=== PATIENT | female | born 1950 | race Caucasian/White ===

== ENCOUNTER → 2024-02-03 13:10 | Outpatient (REF) | payer MEDICARE, OTHER, SELFPAY | LOC: PAVMRI 13:10 | PROVIDERS: ATTENDING PHYSICIAN Pain Medicine Interventional Pain Medicine; FAMILY PHYSICIAN Family Medicine | DX: M54.16 Radiculopathy, lumbar region (principal) | CPT/HCPCS: 72148 ==

== ENCOUNTER → 2024-05-17 14:22 | Outpatient (REF) | payer MEDICARE, OTHER, SELFPAY | LOC: HWRAD 14:22 | PROVIDERS: ATTENDING PHYSICIAN Family Medicine | DX: R06.02 Shortness of breath (principal) | CPT/HCPCS: 71250 ==

== ENCOUNTER 2025-03-14 05:28 | Emergency (ER) | payer MEDICARE, OTHER, SELFPAY ==
[2025-03-14 05:29] VITALS: BP 164/102
--- NOTE | 2025-03-14 05:41 | ED.GENMED ---
History of Present Illness
<Holly Rondon PA-C - Last Filed: 03/14/25 22:57>
General
Chief Complaint: Urinary Symptoms
Source: patient
Exam Limitations: none
Time Seen by Provider: 03/14/25 05:41
Nursing documentation reviewed up to this point in time: agreed with
History of Present Illness
History of Present Illness:
The patient is a 74-year-old female with pmh of htn, utis, CVA, hlp, presenting to the ER today with urinary retention and pelvic pain starting the previous night. She describes a severe urgency to urinate with minimal output, saying, 'The pressure
is mind-blowing,' and despite repeated attempts, passing very little urine each time. She estimates attempting to void 15-20 times overnight. She does have a history of recurrent urinary tract infections (UTIs) but states that she has not ever had
retention with UTIs in the past. The retention coincides with pelvic and rear discomfort, with uncertainty between needing to defecate or pain. She last had a bowel movement yesterday with the aid of a laxative and occasionally takes laxatives for
her Irritable Bowel Syndrome (IBS) which doesn�t seem effective. She follows a diet including a large salad daily but reports this is also ineffective for her bowel routine. Additionally, she reports chronic low back pain due to pre-existing disc
issues. She denies fever, chills, numbness in her legs, or blood in her urine, genital paresthesias, new medications, difficulty ambulating.
Past History
<Holly Rondon PA-C - Last Filed: 03/14/25 22:57>
Past History
ED Past Medical History: CVA and Hypercholesterolemia
ED Past Surgical History: Gynecological (Hysterectomy) and Orthopedic
Social History
Tobacco: Non-smoker
Alcohol: None
Drug: None
Review of Systems
<Holly Rondon PA-C - Last Filed: 03/14/25 22:57>
Review of Systems
All Other Systems: ROS reviewed and negative except as documented in HPI and ROS
Phy Exam
<MYRIAM Hollis Last Filed: 03/14/25 22:57>
Physical Exam
Physical Exam:
General: Patient is well appearing and in no acute distress; non-toxic
Skin: Warm and dry, no rashes or lesions
Head: Normocephalic, atraumatic
Eyes: Sclera non-icteric. EOMs intact.
Cardiac: Regular rate
Peripheral Vascular:
Pulm: Normal respiratory effort, no wheezes, rales, or rhonchi
Abdomen: N pelvic tenderness to palpation
Neuro: CN II-XII intact, no focal neurologic deficits.
Psychiatric: Appropriate mood and affect.
Course
<MYRIAM Hollis Last Filed: 03/14/25 22:57>
Orders/Labs/Results
Orders:
Orders
03/14/25 05:47
Urinalysis Reflex To Culture Urgent
Date Specimen was Collected: 03/14/25
Time Specimen was Collected: 05:42
Urine Microscopic Reflex Cult Urgent
Urine Culture Urgent
CHERRY Source: U
Specimen Description:
Date Specimen was Collected: 03/14/25
Time Specimen was Collected: 05:42
03/14/25 05:50
Bladder Scan- Treatment ONCE
03/14/25 05:51
CT Abd/pelvis W Iv Cont Urgent
Comment:
Reason For Exam: new onset urinary retention, abdominal pain
03/14/25 06:05
Complete Blood Count/With Diff Urgent
03/14/25 06:06
Comprehensive Metabolic Panel Urgent
Lipase Urgent
03/14/25 07:08
CefTRIAXone [Rocephin] 2,000 mg IV NOW STA
03/14/25 07:30
Sterile Water [Sterile Water For Injection] 20 ml .ROUTE .STK-MED
03/14/25 07:47
Ketorolac [Toradol] 15 mg IV NOW STA
Phenazopyridine HCl [Pyridium] 200 mg PO NOW STA
03/14/25 09:10
Moody Placement- Treatment ONCE
Reason for insertion: Acute Retention
Abnormal Lab Results
03/14/25 03/14/25 03/14/25
05:47 06:05 06:06
RBC 3.97 L 10^6/uL
(4.20-5.40)
Hct 36.0 L %
(37.0-47.0)
MPV 11.0 H fL
(7.4-10.4)
Absolute Lymphs (auto) 1.0 L 10^3/uL
(1.2-3.4)
Lymphocytes % 18.2 L %
(20.5-51.1)
Monocytes % 9.4 H %
(1.7-9.3)
Chloride 110 H mmol/L
(98-107)
BUN 24 H mg/dl
(7-17)
Glucose 117 H mg/dl
(70-99)
Ur Occult Blood Reflex 4+ A
(Negative)
Leukocyte Esterase Rfl 3+ A
(Negative)
Urine RBC 40-50 A /HPF
(0-2)
Urine WBC (Reflex) >100 A /HPF
(0-5)
Urine Bacteria (Reflex) Moderate A
(Negative)
Urine Albumin (Reflex) 3+ A
(Neg - Trace)
03/14/25 06:05
03/14/25 06:06
Vital Signs
Initial and Last Documented VS:
Initial Vital Signs
Temp Pulse Resp BP Pulse Ox
97.8 F 108 20 164/102 95
03/14/25 05:29 03/14/25 05:29 03/14/25 05:29 03/14/25 05:29 03/14/25 05:29
Last Documented Vital Signs
Temp Pulse Resp BP Pulse Ox
97.8 F 81 16 140/89 99
03/14/25 05:29 03/14/25 11:21 03/14/25 11:21 03/14/25 11:21 03/14/25 11:21
<Zev Landon Jr., LAURY-Víctor - Last Filed: 03/14/25 10:56>
Orders/Labs/Results
Orders:
Orders
03/14/25 05:47
Urinalysis Reflex To Culture Urgent
Date Specimen was Collected: 03/14/25
Time Specimen was Collected: 05:42
Urine Microscopic Reflex Cult Urgent
Urine Culture Urgent
CHERRY Source: U
Specimen Description:
Date Specimen was Collected: 03/14/25
Time Specimen was Collected: 05:42
03/14/25 05:50
Bladder Scan- Treatment ONCE
03/14/25 05:51
CT Abd/pelvis W Iv Cont Urgent
Comment:
Reason For Exam: new onset urinary retention, abdominal pain
03/14/25 06:05
Complete Blood Count/With Diff Urgent
03/14/25 06:06
Comprehensive Metabolic Panel Urgent
Lipase Urgent
03/14/25 07:08
CefTRIAXone [Rocephin] 2,000 mg IV NOW STA
03/14/25 07:30
Sterile Water [Sterile Water For Injection] 20 ml .ROUTE .STK-MED
03/14/25 07:47
Ketorolac [Toradol] 15 mg IV NOW STA
Phenazopyridine HCl [Pyridium] 200 mg PO NOW STA
03/14/25 09:10
Moody Placement- Treatment ONCE
Reason for insertion: Acute Retention
Abnormal Lab Results
03/14/25 03/14/2503/14/25
05:47 06:05 06:06
RBC 3.97 L 10^6/uL
(4.20-5.40)
Hct 36.0 L %
(37.0-47.0)
MPV 11.0 H fL
(7.4-10.4)
Absolute Lymphs (auto) 1.0 L 10^3/uL
(1.2-3.4)
Lymphocytes % 18.2 L %
(20.5-51.1)
Monocytes % 9.4 H %
(1.7-9.3)
Chloride 110 H mmol/L
(98-107)
BUN 24 H mg/dl
(7-17)
Glucose 117 H mg/dl
(70-99)
Ur Occult Blood Reflex 4+ A
(Negative)
Leukocyte Esterase Rfl 3+ A
(Negative)
Urine RBC 40-50 A /HPF
(0-2)
Urine WBC (Reflex) >100 A /HPF
(0-5)
Urine Bacteria (Reflex) Moderate A
(Negative)
Urine Albumin (Reflex) 3+ A
(Neg - Trace)
03/14/25 06:05
03/14/25 06:06
Vital Signs
Initial and Last Documented VS:
Initial Vital Signs
Temp Pulse Resp BP Pulse Ox
97.8 F 108 20 164/102 95
03/14/25 05:29 03/14/25 05:29 03/14/25 05:29 03/14/25 05:29 03/14/25 05:29
Last Documented Vital Signs
Temp Pulse Resp BP Pulse Ox
97.8 F 81 16 140/89 99
03/14/25 05:29 03/14/25 11:21 03/14/25 11:21 03/14/25 11:21 03/14/25 11:21
<Holly Rondon PA-C - Last Filed: 03/14/25 22:57>
MDM/Problems Addressed
Differential Diagnosis Includes:
The Differential Diagnosis includes, in no particular order and is not limited to:
1. Urinary Tract Infection
2. Urolithiasis (urinary stones)
3. Bladder outlet obstruction
4. Ureteral obstruction
5. Pelvic floor dysfunction
6. Neurogenic bladder
7. Incomplete bladder emptying due to constipation
8. Disc herniation causing secondary urinary symptoms
9. Acute kidney injury
10. Irritable Bowel Syndrome exacerbation affecting urinary function
MDM/Problems Addressed:
74 y/o female presents to the ER with new onset urinary retention. She notes pelvic pain and burning with urination. She has never had retention before. She has associated chronic low back pain. Patient was retaining around 380 and she was straight
cathed. Her urinalysis is concerning for infection. CBC unremarkable. Case signed out to Noe Landon PA-C pending CT scan and rest of blood work
<Zev Landon Jr., PA-C - Last Filed: 03/14/25 10:56>
*Critical Care Note
Total Time (30-74mins, 75-104mins- exclusive of procedures): Not Applicable
<Zev Landon Jr., PA-C - Last Filed: 03/14/25 10:56>
Update Note
Update Note:
ES////CT results were discussed with the patient. Still having difficulty with urination still retaining at this point Moody catheter will be placed. Otherwise no signs of complication patient generally well-appearing plan to follow plan as listed
below.
- Initiate ceftriaxone, followed by a prescription for oral antibiotics twice daily for one week, pending culture results to ensure appropriate coverage.
- Place a Moody catheter to manage urinary retention, with plans for removal and further evaluation by a urologist in one to two weeks.
- Recommend and arrange follow-up with a urologist to evaluate the cause of recurrent UTIs and discuss possible anatomical causes, including urinary reflux.
- Plan to adjust antibiotic therapy if urine culture results indicate resistance to the prescribed regimen.
ED Attending Note
<Holly Rondon PA-C - Last Filed: 03/14/25 22:57>
-
Portions of this chart may have been created with voice recognition software.� Occasional wrong word or��sound alike� substitutions may have occurred due to the inherent limitations of voice recognition software.
Discharge Plan
Departure
Patient Disposition: Home (Routine Discharge)
Date of Disposition: 03/14/25
Time of Disposition: 09:10
Patient with high blood pressure during this ER visit?: No
Condition: Good
Covid-19: Not Applicable
Discharge Problem:
Acute UTI, Retention of urine
Instructions: Urinary Tract Infection, Adult (DC), How to care for a urinary catheter
Prescriptions:
New
cefpodoxime 200 mg tablet
200 mg PO BID 7 Days Qty: 14 0RF
No Action
pantoprazole 20 MG tablet,delayed release (DR/EC)
20 mg PO DAILY
Patient Comments:
not sure of dose
zolpidem 5 MG tablet
5 mg PO HS
atorvastatin 40 mg Tablet
40 mg PO QPM
citalopram [Celexa] 40 mg Tablet
20 mg PO DAILY
cholecalciferol (vitamin D3) [Vitamin D3] 125 mcg (5,000 unit) Tablet
125 mcg PO DAILY
valsartan-hydrochlorothiazide 80-12.5 mg Tablet
0.5 tab PO DAILY Qty: 0 0RF
Rx Instructions:
HOLD SYSTOLIC BLOOD PRESSURE<130 IF TAKING OXY
Referrals:
Jaspreet Carbone MD [Active, Urology]
Jeremy Tyson MD [Family Provider, Family Practice]
Activity Restrictions/Additional Instructions:
You came to the emergency department today with concerns of urinary symptoms. You are found to have a urinary tract infection. Please take the prescribed antibiotic and follow-up closely with urology for further assessment and management.
Interventions
Interventions:
*Risk Screen - Suicide Last Done: 03/14/25 05:29
*General Assessment Last Done: 03/14/25 06:15
*Neglect/Abuse Screening Last Done: 03/14/25 05:29
*ED- Fall Risk Assessment Last Done: 03/14/25 06:15
*ED COVID-19 Vaccine History Last Done: 03/14/25 06:15
*Nursing Disposition Last Done: 03/14/25 11:21
MH-Mneobs-Ggctyyochh Assessment Last Done: 03/14/25 06:56
ED-Female Genitourinary Assessment Last Done: 03/14/25 07:01
Discharge Date and Time
Discharge Date/Time: 03/14/25 11:22
Print Language: FRISIAN
[2025-03-14 05:56] LABS: Urine Albumin 3+ (Neg - Trace); Urine Bilirubin Negative (Negative); Urine Character Cloudy (Clear); Urine Glucose Negative (Negative); Urine Ketone Negative (Negative); Urine Leukocyte 3+ (Negative); Urine Nitrite Negative (Negative); Urine Occult Blood 4+ (Negative); Urine Urobilinogen Negative (Neg - 1+)
[2025-03-14 06:01] LABS: Urine Color Straw
[2025-03-14 06:15] VITALS: BMI 26.6
[2025-03-14 06:18] LABS: Urine Bacteria Moderate (Negative); Urine Red Blood Cell 40-50 /HPF (0-2); Urine White Cell >100 /HPF (0-5)
[2025-03-14 06:54] LABS: % Basophils 0.9 % (0-2); % Eosinophils 1.9 % (0-6); % Immature Granulocytes 0.4 % (0-0.5); % Lymphocytes 18.2 % (20.5-51.1); % Monocytes 9.4 % (1.7-9.3); % Neutrophils 69.2 % (42.2-75.2); Absolute Basophils 0.1 10^3/uL (0-0.2); Absolute Eosinophils 0.1 10^3/uL (0-0.7); Absolute Monocytes 0.5 10^3/uL (0.1-0.6); Absolute Neutrophils 3.7 10^3/uL (1.4-6.5); Mean Corp Hgb Conc. 33.3 g/dL (33.0-37.0); Mean Corpuscular Hgb 30.2 pg (27.0-31.0); Mean Corpuscular Volume 90.7 fL (81.0-99.0); Nucleated Red Blood Cells % 0 %; Platelet Count 189 10^3/uL (130-400); Red Blood Cell Count 3.97 10^6/uL (4.20-5.40); Red Cell Dist. Width 13.7 % (11.5-14.5); White Blood Cell Count 5.3 10^3/uL (4.8-10.8)
[2025-03-14 07:35] LABS: ALT (SGPT) 15 U/L (0-35); AST (SGOT) 23 U/L (14-36); Albumin 3.9 g/dl (3.5-5.0); Alkaline Phosphatase 99 U/L (38-126); Blood Urea Nitrogen 24 mg/dl (7-17); Calcium 9.8 mg/dl (8.4-10.2); Carbon Dioxide 22 mmol/L (22-30); Chloride 110 mmol/L (98-107); Estimated Creatinine Clearance 40 ml/min; Glucose 117 mg/dl (70-99); Lipase 70 U/L (23-300); Potassium 4.3 mmol/L (3.5-5.1); Sodium 140 mmol/L (135-145); Total Bilirubin 0.7 mg/dl (0.2-1.3); Total Protein 6.4 g/dl (6.3-8.2); eGFR 58.75
[2025-03-14] MEDS: ROCEPHIN 2000 MG IV (07:40)
[2025-03-14] MEDS: Pyridium 200 MG PO (07:51)
[2025-03-14] MEDS: TORADOL 15 MG IV (07:51)
[2025-03-14 11:21] VITALS: BP 140/89
== END 2025-03-14 11:22 | disposition home or self-care (01) ==
LOC: EMR 05:28
PROVIDERS: Physician Assistant; EMERGENCY PHYSICIAN Student in an Organized Health Care Education/Training Program; FAMILY PHYSICIAN Family Medicine
DX: N39.0 Urinary tract infection, site not specified (principal); R33.9 Retention of urine, unspecified; Z87.440 Personal history of urinary (tract) infections; I10 Essential (primary) hypertension; Z86.73 Personal history of transient ischemic attack (TIA), and cerebral infarction without residual deficits; E78.00 Pure hypercholesterolemia, unspecified
CPT/HCPCS: 99285; 96374; 96375; 51702; 74177; 80053; 81003; 81015; 83690; 85025; 87077; 87086; 87186; Q9967

== ENCOUNTER 2025-03-16 14:33 | Emergency (ER) | payer MEDICARE, OTHER, SELFPAY ==
[2025-03-16 14:35] VITALS: BP 174/104
[2025-03-16 15:17] VITALS: BP 134/84
--- NOTE | 2025-03-16 15:22 | ED.GENMED ---
History of Present Illness
General
Chief Complaint: Blood Pressure Problem
Source: patient
Exam Limitations: none
Time Seen by Provider: 03/16/25 15:15
Nursing documentation reviewed up to this point in time: agreed with
History of Present Illness
History of Present Illness:
74-year-old female with history as noted presents to the ER for evaluation of hypertension. Patient was at the urology office (Dr. Carbone) and had a trial of void�her urinary catheter was removed and unfortunately she was not able to void and so
catheter had to be replaced. Prior to sending home patient had set of vital signs and was noted to be hypertensive. She was sent to the emergency room for evaluation. She denies any chest pain, shortness of breath or any other complaints today.
She currently takes valsartan/HCTZ for her blood pressure and denies any recent adjustments. She reports that he has been compliant.
Past History
Past History
ED Past Medical History: CVA and Hypercholesterolemia
ED Past Surgical History: Gynecological (Hysterectomy) and Orthopedic
Social History
Tobacco: Non-smoker
Alcohol: None
Drug: None
Review of Systems
Review of Systems
All Other Systems: ROS reviewed and negative except as documented in HPI and ROS
Respiratory: Denies trouble breathing
Cardiac: Denies chest pain or syncope
Neurological: Denies dizzy, headache, weakness or numbness
Phy Exam
Physical Exam
Physical Exam:
General: Awake, alert, oriented x3; no acute distress
Head: Normocephalic, atraumatic
Eyes: Conjunctiva normal, EOMI, pupils equal round reactive to light bilaterally
Throat: Airway intact, handling secretions
Neck: Trachea midline, supple without meningismus
Lungs: Clear to auscultation bilaterally, no wheezing, rales, rhonchi
Heart: Regular rate and rhythm, no murmurs, gallops, or rubs
Neuro: Cranial nerves intact, speech fluid, left upper extremity weakness status post CVA; motor and sensory intact right upper extremity, bilateral lower extremities
Skin: no rash
Extremities: No edema in extremities, equal pulses in all extremities
Scores
Heart Failure Risk
Heart Failure Risk Score: Not Applicable
Heart Score for Chest Pain Patients
STEMI patient?: Not applicable
Withdrawal Assessment of Alcohol
Withdrawal Assessment Completed?: Not applicable
Course
Orders/Labs/Results
Orders:
Orders
03/16/25 15:21
Electrocardiogram (*1) Urgent
Reason for Study: Hypertension, Benign
EKG- Treatment ONCE
Vital Signs
Blood pressure: 134/84
Initial and Last Documented VS:
Initial Vital Signs
Temp Pulse Resp BP Pulse Ox
36.7 C 94 18 174/104 97
03/16/25 14:35 03/16/25 14:35 03/16/25 14:35 03/16/25 14:35 03/16/25 14:35
Last Documented Vital Signs
Temp Pulse Resp BP Pulse Ox
36.7 C 94 18 174/104 97
03/16/25 14:35 03/16/25 14:35 03/16/25 14:35 03/16/25 14:35 03/16/25 14:35
MDM/Problems Addressed
Differential Diagnosis Includes:
Hypertension
MDM/Problems Addressed:
74-year-old female presents for asymptomatic hypertension noted in urology office after catheter exchange. She was hypertensive in triage to 174/104; on my assessment blood pressure had improved without intervention to 134/84. Rest of vitals
normal. Exam as above. Suspect transient hypertension today likely related to catheter exchange and anxiety/discomfort associated with this. Stable for discharge, advised to check blood pressure and follow-up with her primary doctor as an
outpatient.
Chronic conditions affecting care:
Hypertension
Chronic conditions affecting care: HTN
Acute Exacerbation and/or Progression of Chronic Illness:
Acutely hypertensive without signs or symptoms of hypertensive crisis; resolved without intervention no indication for emergent antihypertensives
Acute Exacerbation and/or Progression of Chronic Illness: HTN
*Pulse Oximetry
Patient hypoxic: no
*Critical Care Note
Total Time (30-74mins, 75-104mins- exclusive of procedures): Not Applicable
Data Reviewed
Source: patient
ED Attending Note
-
Portions of this chart may have been created with voice recognition software.� Occasional wrong word or��sound alike� substitutions may have occurred due to the inherent limitations of voice recognition software.
Discharge Plan
Departure
Patient Disposition: Home (Routine Discharge)
Date of Disposition: 03/16/25
Time of Disposition: 15:21
Patient with high blood pressure during this ER visit?: Yes
Discharge Problem:
Hypertension
Instructions: BLOOD PRESSURE
Prescriptions:
No Action
pantoprazole 20 MG tablet,delayed release (DR/EC)
20 mg PO DAILY
Patient Comments:
not sure of dose
zolpidem 5 MG tablet
5 mg PO HS
atorvastatin 40 mg Tablet
40 mg PO QPM
citalopram [Celexa] 40 mg Tablet
20 mg PO DAILY
cholecalciferol (vitamin D3) [Vitamin D3] 125 mcg (5,000 unit) Tablet
125 mcg PO DAILY
valsartan-hydrochlorothiazide 80-12.5 mg Tablet
0.5 tab PO DAILY Qty: 0 0RF
Rx Instructions:
HOLD SYSTOLIC BLOOD PRESSURE<130 IF TAKING OXY
cefpodoxime 200 mg tablet
200 mg PO BID 7 Days Qty: 14 0RF
Activity Restrictions/Additional Instructions:
You should monitor your blood pressure at home for the next few days and follow-up with your primary doctor to discuss whether any adjustment will be needed to your blood pressure medication.
Thank you for visiting the Emergency Department at [facility].
1. Please schedule a follow up appointment as directed. Call first thing tomorrow morning to make an appointment.
2. If indicated, please take your medications as instructed and indicated on discharge paperwork.
3. If any of your symptoms do not improve, or persist, or become more severe within 6-12 hours, please return to the emergency department for further care.
4. Please return to the emergency department if you develop a headache, neck pain/stiffness, fever greater than 100.4F, chest pain, shortness of breath, persistent nausea, vomiting, slurred speech, difficulty walking, numbness/tingling, weakness,
signs of infection or any other symptoms that are worrisome to you.
Please call [phone] if you have any questions.
Interventions
Interventions:
*Risk Screen - Suicide Last Done: 03/16/25 14:36
*General Assessment Last Done: 03/16/25 14:36
*Neglect/Abuse Screening Last Done: 03/16/25 14:36
Discharge Date and Time
Print Language: DIVEHI
== END 2025-03-16 16:12 | disposition home or self-care (01) ==
LOC: EMR 14:33
PROVIDERS: EMERGENCY PHYSICIAN Emergency Medicine; FAMILY PHYSICIAN Family Medicine
DX: I10 Essential (primary) hypertension (principal); E78.00 Pure hypercholesterolemia, unspecified; Z86.73 Personal history of transient ischemic attack (TIA), and cerebral infarction without residual deficits; Z90.710 Acquired absence of both cervix and uterus
CPT/HCPCS: 99283; 93005

== ENCOUNTER 2025-06-03 13:54 | Emergency (ER) | payer MEDICARE, OTHER, SELFPAY ==
[2025-06-03 13:58] VITALS: BP 146/85
[2025-06-03 14:21] LABS: Hematocrit 38.1 % (37.0-47.0); Hemoglobin 13.0 g/dL (12.0-16.0); Mean Corp Hgb Conc. 34.1 g/dL (33.0-37.0); Mean Corpuscular Volume 89.6 fL (81.0-99.0); Nucleated Red Blood Cells % 0 %; Platelet Count 186 10^3/uL (130-400); Red Cell Dist. Width 12.8 % (11.5-14.5)
[2025-06-03 14:37] LABS: ALT (SGPT) 19 U/L (0-35); AST (SGOT) 26 U/L (14-36); Albumin 4.5 g/dl (3.5-5.0); Alkaline Phosphatase 94 U/L (38-126); Blood Urea Nitrogen 20 mg/dl (7-17); Calcium 10.1 mg/dl (8.4-10.2); Carbon Dioxide 19 mmol/L (22-30); Chloride 102 mmol/L (98-107); Glucose 95 mg/dl (70-99); Potassium 3.9 mmol/L (3.5-5.1); Sodium 130 mmol/L (135-145); Total Protein 6.9 g/dl (6.3-8.2); eGFR 58.75
[2025-06-03 14:55] LABS: Troponin I < 0.012 ng/ml
[2025-06-03 17:35] VITALS: BMI 24.7
--- NOTE | 2025-06-03 17:35 | ED.GENMED ---
History of Present Illness
General
Chief Complaint: Breathing Problem
Time Seen by Provider: 06/03/25 17:34
History of Present Illness
History of Present Illness:
FOCUSED PAST MEDICAL HISTORY
- The patient had a stroke in 2006, has a history of high blood pressure and hyperlipidemia.
REVIEW OF OLD RECORDS
- The patient was seen related to blood pressure concerns in March in the ER here.
Note:
CHIEF COMPLAINT(S)
Shortness of breath and wheezing.
HISTORY OF PRESENT ILLNESS
The patient is a 74-year-old female with a history of asthma diagnosed approximately a year ago. The patient did not have asthma during childhood or earlier in life. The asthma diagnosis was based on a pulmonary function study ordered by her family
doctor. She has been experiencing shortness of breath and wheezing, which has worsened in the last 48 hours. The patient uses albuterol three times a day, which had been effective until this recent exacerbation. The patient reports complete blockage
of her sinuses but denies any swelling or weight gain. Her oxygen levels, checked during the consultation, were at 100%, indicating adequate oxygenation.
PAST MEDICAL AND SURGICAL HISTORY
Diagnosed with asthma a year ago. The patient also has renal artery stenosis and has a history of high blood pressure. Earlier today, her blood pressure was noted to be extremely elevated at 200/unknown.
CHRONIC MEDICAL CONDITIONS SIGNIFICANTLY AFFECTING CARE
Asthma diagnosed approximately a year ago.
Renal artery stenosis.
Hypertension.
SOCIAL DETERMINANTS AFFECTING HEALTH
No specific social determinants were mentioned during the conversation.
MEDICATIONS
Albuterol inhaler, used three times daily.
Previous use of steroids, with a concern for thrush development.
REVIEW OF SYSTEMS
- Respiratory: Shortness of breath, wheezing.
- Ear, Nose, and Throat: Complete sinus blockage.
PHYSICAL EXAM
General: Alert, no acute distress.
Skin: Warm, dry.
Head: Normocephalic, atraumatic.
Neck: Supple, trachea midline.
Eye, Ears, Nose, Mouth, and Throat: Oral mucosa moist.
Cardiovascular: Normal peripheral perfusion, no edema.
Respiratory: Breathing is mildly labored with diminished breath sounds. Questionable rales on the left
Gastrointestinal: Abdomen nondistended.
Back: Normal range of motion, normal alignment.
Musculoskeletal: Normal range of motion, normal strength.
Neurological: Alert and oriented to person, place, time, and situation, No focal neurological deficit observed.
Psychiatric: Cooperative, appropriate mood & affect.
PLAN
1. A chest X-ray will be performed to further evaluate the shortness of breath and wheezing.
2. Administer a breathing treatment with Duoneb, consisting of albuterol and ipratropium bromide.
3. Consider a low-dose steroid of 20 mg over a five-day period to manage inflammation and reduce symptoms.
4. Monitor blood pressure closely due to history of hypertension and adjust antihypertensive therapy as needed.
DIFFERENTIAL DIAGNOSIS
The Differential Diagnosis includes, in no particular order and is not limited to:
1. Asthma exacerbation
2. Chronic Obstructive Pulmonary Disease (COPD) exacerbation
3. Upper respiratory infection
4. Pulmonary embolism
5. Congestive heart failure exacerbation
6. Pneumonia
7. Anemia
8. Bronchitis
9. Viral infection involving the lower respiratory tract
10. Heart failure associated with renal artery stenosis
RADIOLOGY
- Question density at the left base
EKG
- Sinus 68, septal Q waves noted no significant change from 03/16/2025
LABS
- CBC normal, chemistries relatively unremarkable however the bicarb is slightly low at 19, troponin less than 0.012
UPDATE
-SUMMARY OF ENCOUNTER
The patient, a 74-year-old female with a history of asthma, was seen in the emergency department due to worsening shortness of breath and wheezing over the past 48 hours. The patient had a prior incident involving tuberculosis which encapsulated and
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 During this visit, a potential small lesion in one of her lungs was mentioned, though it is likely a normal variant and not suspected to be tuberculosis-related. To manage her symptoms and potential infection, a course
of antibiotics (Azithromycin) and steroids were prescribed.
EMERGENCY TREATMENTS ADMINISTERED
- A dose of Azithromycin was administered.
PLAN
The patient was initiated on Azithromycin for a total of five days and steroids were prescribed to be picked up from the pharmacy. Continued use of her inhaler for asthma management was recommended.
MEDICATION RECONCILIATION
- Azithromycin: One dose given in the ED, and a prescription was provided for a 5-day course.
- Steroids: Prescription sent to pharmacy.
MEDICAL DECISION MAKING
- Complexity of Data Reviewed: Chronic conditions affecting care including asthma, renal artery stenosis, hypertension. Differential diagnosis includes: 1. Asthma exacerbation, 2. Chronic Obstructive Pulmonary Disease (COPD) exacerbation, 3. Upper
respiratory infection, 4. Pulmonary embolism, 5. Congestive heart failure exacerbation, 6. Pneumonia, 7. Anemia, 8. Bronchitis, 9. Viral infection involving the lower respiratory tract, 10. Heart failure associated with renal artery stenosis.
-Data:
Category 1
- Review of potential lung lesion since patient mentioned previous encapsulated tuberculosis.
- Independent interpretation of lung findings; suspected to be a normal variant, no acute concern found.
-Risk:
- Prescription medication was prescribed: Azithromycin and steroids.
- Consideration of Admission/Observation: Escalation of care including admission/observation was considered given the complexity and risk of the patients presenting complaint, exam findings, and/or their underlying comorbidities. However, ultimately
I feel the patient is safe for outpatient management with close follow up. Reasoning: Work-up reassuring, does not reveal any acute life/organ threatening processes, patients symptoms well controlled upon reevaluation, reexamination is reassuring,
vitals are stable, patient agreeable with discharge, reliable for follow-up.
DIAGNOSIS
- Asthma exacerbation (ICD-10: J45.901)
- Possible respiratory infection (ICD-10: J98.8)
Past History
Past History
ED Past Medical History: CVA and Hypercholesterolemia
ED Past Surgical History: Gynecological (Hysterectomy) and Orthopedic
Social History
Tobacco: Non-smoker
Alcohol: None
Drug: None
Phy Exam
Physical Exam
Physical Exam:
See HPI
Scores
Heart Failure Risk
Heart Failure Risk Score: Not Applicable
Course
Orders/Labs/Results
Orders:
Orders
06/03/25 14:01
Electrocardiogram (*1) Urgent
Reason for Study: Other
Other Reason for Exam: Respiratory Distress
EKG- Treatment ONCE
06/03/25 14:08
Complete Blood Count/With Diff Urgent
Comprehensive Metabolic Panel Urgent
Troponin I Urgent
06/03/25 17:43
Ipratropium/Albuterol Sulfate [Duoneb] 3 ml INH R NOW STA
Prednisone [Deltasone] 50 mg PO NOW STA
CR Chest - 2 Views Urgent
Comment:
Reason For Exam: sob
06/03/25 19:14
Azithromycin [Zithromax] 500 mg PO NOW STA
Abnormal Lab Results
06/03/25
14:08
MPV 10.8 H fL
(7.4-10.4)
Sodium 130 L mmol/L
(135-145)
Carbon Dioxide 19 L mmol/L
(22-30)
BUN 20 H mg/dl
(7-17)
06/03/25 14:08
06/03/25 14:08
Vital Signs
Initial and Last Documented VS:
Initial Vital Signs
Temp Pulse Resp BP Pulse Ox
36.7 C 70 18 146/85 96
06/03/25 13:58 06/03/25 13:58 06/03/25 13:58 06/03/25 13:58 06/03/25 13:58
Last Documented Vital Signs
Temp Pulse Resp BP Pulse Ox
36.7 C 68 14 128/75 96
06/03/25 13:58 06/03/25 18:30 06/03/25 18:30 06/03/25 18:00 06/03/25 18:30
*Pulse Oximetry
SaO2: 96
Oxygen Mode of Delivery: Room air
Patient hypoxic: no
*Critical Care Note
Total Time (30-74mins, 75-104mins- exclusive of procedures): Not Applicable
ED Attending Note
-
Portions of this chart may have been created with voice recognition software.� Occasional wrong word or��sound alike� substitutions may have occurred due to the inherent limitations of voice recognition software.
Discharge Plan
Departure
Patient Disposition: Home (Routine Discharge)
Date of Disposition: 06/03/25
Time of Disposition: 19:13
Patient with high blood pressure during this ER visit?: Yes
Discharge Problem:
Shortness of breath
Instructions: Shortness of Breath (Dyspnea) (DC), BLOOD PRESSURE
Prescriptions:
New
azithromycin [Zithromax] 250 mg tablet
250 mg PO DAILY Qty: 4 0RF
prednisone 50 mg tablet
50 mg PO DAILY Qty: 4 0RF
No Action
pantoprazole 20 MG tablet,delayed release (DR/EC)
40 mg PO DAILY
Patient Comments:
not sure of dose
zolpidem 5 MG tablet
10 mg PO HS
atorvastatin 40 mg Tablet
10 mg PO DAILY
citalopram [Celexa] 40 mg Tablet
20 mg PO DAILY
valsartan-hydrochlorothiazide 80-12.5 mg Tablet
0.5 tab PO DAILY Qty: 0 0RF
Rx Instructions:
HOLD SYSTOLIC BLOOD PRESSURE<130 IF TAKING OXY
Referrals:
Jeremy Tyson MD [Family Provider, Family Practice]
Activity Restrictions/Additional Instructions:
The chest x-ray shows a questionable pneumonia on the left side however your white blood cell count is normal and your temperature is normal. We can try azithromycin. I am also sending a prescription for prednisone to your pharmacy. Return here
if worse or other concerns.
Interventions
Interventions:
*Risk Screen - Suicide Last Done: 06/03/25 13:58
*General Assessment Last Done: 06/03/25 17:35
*Neglect/Abuse Screening Last Done: 06/03/25 17:35
*ED- Fall Risk Assessment Last Done: 06/03/25 17:35
*ED COVID-19 Vaccine History Last Done: 06/03/25 17:35
ED- Cardiac Assessment Last Done: 06/03/25 17:35
ED- Pulmonary Assessment Last Done: 06/03/25 17:35
Discharge Date and Time
Print Language: CHINESE
[2025-06-03 17:43] VITALS: BP 138/104
[2025-06-03] MEDS: DUONEB 3 ML INH (17:57)
[2025-06-03] MEDS: DELTASONE 50 MG PO (17:57)
[2025-06-03 18:00] VITALS: BP 128/75
[2025-06-03] MEDS: ZITHROMAX 500 MG PO (20:04)
[2025-06-03 20:15] VITALS: BP 130/83
== END 2025-06-03 20:20 | disposition home or self-care (01) ==
LOC: EMR 13:54
PROVIDERS: Emergency Medicine; EMERGENCY PHYSICIAN Emergency Medicine; FAMILY PHYSICIAN Family Medicine
DX: J45.901 Unspecified asthma with (acute) exacerbation (principal); I10 Essential (primary) hypertension; E78.00 Pure hypercholesterolemia, unspecified; Z86.73 Personal history of transient ischemic attack (TIA), and cerebral infarction without residual deficits
CPT/HCPCS: 94640; 99285; 71046; 80053; 84484; 85025; 93005

== ENCOUNTER → 2025-06-16 09:07 | Outpatient (REF) | payer MEDICARE, OTHER, SELFPAY | LOC: HWRAD 09:07 | PROVIDERS: ATTENDING PHYSICIAN Internal Medicine; FAMILY PHYSICIAN Family Medicine | DX: Z87.891 Personal history of nicotine dependence (principal) | CPT/HCPCS: 71271 ==